=== PATIENT | male | born 1960 | race African-American/Black ===

== ENCOUNTER 2017-10-02 13:23 | Emergency (ER) | payer OTHER ==
[~2017-10-02] VITALS: Ht 177.8 cm; Wt 72.6 kg
[~2017-10-02 13:23] MED LIST: AUGMENTIN 500-1 EACH ORAL; MOTRIN600 MG PO; NKM; VICODIN 5-5001 EACH ORAL
--- NOTE | 2017-10-02 14:35 | Emergency Room Report ---
History of Present Illness General Chief Complaint: Back Injury Source: EMS Present Illness HPI 57-year-old male presents emergency department complaining of 8 out of 10 in severity low back pain that radiates down the posterior right thigh. Patient reports onset while he was digging a trench to install a sprinkler system this afternoon. Patient reports history of sciatica in the past. Patient denies appreciable trauma or fall. Pt. reports he was performing strenuous activity. Patient denies fevers, chills, recent spinal procedure or history of cancer. Patient states that his pain is exacerbated when standing straight or lying completely flat. Denies numbness tingling or loss of sensation or gross motor movements of the extremities, incontinence of bowel or bladder. Denies CP, Palpitations, LOC, AMS , dizziness, Changes in Vision, weakness or a sudden severe headache. Allergies: Coded Allergies: No Known Allergies (Unverified , 09/17/12) Patient History Past Medical History: see triage record Past Surgical History: none Pertinent Family History: none Immunizations: UTD Reviewed Nursing Documentation: PMH: Agreed; PSxH: Agreed Nursing Documentation-PMH Past Medical History: No Stated History Hx Gastrointestinal Problems: No - Hepatitis(Pt doesn't know what type) Review of Systems All Other Systems: negative except mentioned in HPI Physical Exam Vital Signs Date Time Temp Pulse Resp B/P (MAP) Pulse Ox O2 Delivery O2 Flow Rate FiO2 10/02/17 13:18 98.4 80 16 115/73 99 Room Air 98.4 Sp02 EP Interpretation: reviewed, normal General Appearance: no apparent distress, alert, GCS 15, non-toxic Head: normocephalic, atraumatic ENT: hearing grossly normal, normal voice Neck: full range of motion Respiratory: lungs clear, normal breath sounds, speaking full sentences Cardiovascular #1: regular rate, rhythm Gastrointestinal: non tender, soft Rectal: deferred Musculoskeletal: back normal, gait/station normal, normal range of motion, tender - TTP to the lumbar paraspinal musculature bilaterally, no midline spinous process ttp. Neurologic: alert, oriented x3, responsive, motor strength/tone normal, sensory intact, speech normal, other - no paresthesia to the bilateral inner thighs., grossly normal Psychiatric: judgement/insight normal Skin: normal color, no rash, warm/dry, well hydrated Medical Decision Making PA Attestation Dr. Stevenson is my supervising Physician whom patient management has been discussed with. Diagnostic Impression: Primary Impression: Acute lumbosacral myofascial strain Qualified Codes: S39.012A - Strain of muscle, fascia and tendon of lower back , initial encounter Additional Impression: Sciatica of right side ER Course 57-year-old male presents emergency department complaining of 8 out of 10 in severity low back pain that radiates down the posterior right thigh. Patient reports onset while he was digging a trench to install a sprinkler system this afternoon. Patient reports history of sciatica in the past. Patient denies appreciable trauma or fall. Pt. reports he was performing strenuous activity. Patient denies fevers, chills, recent spinal procedure or history of cancer. Patient states that his pain is exacerbated when standing straight or lying completely flat. Denies numbness tingling or loss of sensation or gross motor movements of the extremities, incontinence of bowel or bladder. Denies CP, Palpitations, LOC, AMS , dizziness, Changes in Vision, weakness or a sudden severe headache. Ddx considered but are not limited to Fracture, dislocation, contusion, epidural abscess, Sprain/Strain/Spasm, disk herniation, spinal chord compression just to name a few. Vital signs: are WNL, pt. is afebrile H&PE are most consistent with lumbosacral strain with right sided sciatica Pt. able to tolerate straight leg raise does initiate symptoms. . ORDERS: X-ray not required at this time, no spinous process tenderness ED INTERVENTIONS: Motrin PO -Soma PO -Lidoderm patch TP. Re-Evaluation: pt. states his pain has subsided with ED interventions DISCHARGE: At this time pt. is stable for d/c to home. Will provide printed patient care instructions, and any necessary prescriptions. Care plan and follow up instructions have been discussed with the patient prior to discharge. Last Vital Signs Date Time Temp Pulse Resp B/P (MAP) Pulse Ox O2 Delivery O2 Flow Rate FiO2 10/02/17 13:18 98.4 80 16 115/73 99 Room Air 98.4 Disposition: HOME, SELF-CARE Condition: Stable Scripts Ibuprofen* (MOTRIN*) 600 Mg Tablet 600 MG ORAL THREE TIMES A DAY, #15 TAB 0 Refills Prov: Kaylen Clarke 10/02/17 Methocarbamol* (ROBAXIN*) 500 Mg Tablet 1000 MG PO TID, #42 TAB 0 Refills Prov: Kaylen Clarke 10/02/17 Lidocaine (Lidoderm) 1 Each Adh..patch 1 PATCH TOPIC DAILY, #30 PATCH 0 Refills Patch(es) may remain in place for up to 12 hours in any 24-hour period. Prov: Kaylen Clarke 10/02/17 Patient Instructions: Lumbosacral Strain, Sciatica, [id number] Additional Instructions: Take medications as directed. Follow up with a Primary Care Provider in 3-5 days, even if your symptoms have resolved. --Please review list of primary care clinics, if you do not already have a primary care provider Return sooner to ED if new symptoms occur, or current symptoms become worse. Do not drink alcohol, drive, or operate heavy machinery while taking Robaxin/ muscle relaxers as this may cause drowsiness. - Please note that this Emergency Department Report was dictated using [employer] help desk analyst technology software, occasionally this can lead to erroneous entry secondary to interpretation by the dictation equipment. Kaylen Clarke Oct 02, 2017 14:35
[2017-10-02] MEDS ORDERED: ROBAXIN500 MG PO (15:09)
[2017-10-02] MEDS ORDERED: IBUPROFEN600 MG ORAL (15:09)
[2017-10-02] MEDS ORDERED: LIDODERM700 M1 TOPIC (15:09)
[2017-10-02 15:15] VITALS: BP 118/75
[2017-10-02 16:14] VITALS: BP 118/75
== END 2017-10-02 15:40 | disposition home or self-care (01) ==
LOC: EDBD 13:23 → EMR 14:51
DX: S39.012A Strain of muscle, fascia and tendon of lower back, initial encounter (principal); Y93.89 Activity, other specified; Y92.69 Other specified industrial and construction area as the place of occurrence of the external cause; M54.31 Sciatica, right side
CPT/HCPCS: 99284